=== PATIENT | male | born 1990 | race African-American/Black ===

== ENCOUNTER 2025-03-03 21:19 | Emergency (ER) | payer MEDICAID ==
[~2025-03-03] VITALS: Ht 185.4 cm; Wt 82.0 kg
[2025-03-03 21:41] VITALS: O2SAT 99
[2025-03-03] MEDS: KETOROLAC 15MG/ML VIAL IM ONE (23:09)
[2025-03-04] MEDS ORDERED: BO1 TP (01:23)
[2025-03-04] MEDS ORDERED: IBUP-2028 MT (01:23)
[2025-03-04 01:32] VITALS: BP 122/80; PULSE 45; RESP 12; TEMP 36.9; O2SAT 100
== END 2025-03-04 01:47 | disposition home or self-care (01) ==
LOC: ER 21:19
DX: S90.512A Abrasion, left ankle, initial encounter (principal); S09.90XA Unspecified injury of head, initial encounter; X58.XXXA Exposure to other specified factors, initial encounter; Y93.89 Activity, other specified; Y92.89 Other specified places as the place of occurrence of the external cause; Y99.8 Other external cause status
CPT/HCPCS: 99285; 70450; 73562; 73610; 73650; 96372; J1885